=== PATIENT | female | born 1985 | race Two or more races ===

== ENCOUNTER 2025-06-18 21:35 | Emergency (ER) | payer MEDICAID, SELFPAY ==
[2025-06-18 21:42] VITALS: BP 121/68; PULSE 50; RESP 16; TEMP 36.3; O2SAT 94
[2025-06-18 21:44] VITALS: PULSE 47; RESP 20; O2SAT 99
--- NOTE | 2025-06-18 21:44 | PD.EDSYNC ---
ED Syncope RME/HPI General Chief Complaint: Syncope / Near Syncope Stated Complaint: SYNCOPE Time Seen by Provider: 06/18/25 21:48 Arrival date/time: 06/18/25 21:35 RME / HPI RME / HPI narrative: This section includes all my notes and documentations, including HPI, PE, and ED course. Damon Mcgregor MD HPI: 39yo female BIBA from home here for syncope. Patient had a witnessed syncope episode by her . Patient's caught the patient before she fell and guided her to the ground. She has been feeling generally weak for the last 1 week. Decreased oral intake due to decreased appetite. No other complaints reported. ROS: All negative except as documented in HPI. Physical Exam: General: Alert and oriented. Appearance of malaise noted. Eyes: Conjunctivae and lids clear. PERRL. EOMI. ENT: No nasal congestion. Neck: Supple. No carotid bruit. No JVD. Heart: RRR. Lungs: No respiratory distress. Good air movement. No rhonchi, wheezing, rales. Abdomen: Soft and nontender. Normal bowel sounds. No distension. No rebound or guarding. Back: No CVA tenderness. Skin: Warm and dry. Neuro: Alert and oriented X 3. Cranial nerves II to XII grossly normal. No peripheral motor deficits. I reviewed EMS notes. I reviewed all diagnostic test results. My interpretation of the EKG is sinus rhythm with no ST-T changes. My interpretation of the chest x-ray is right AC joint separation. My review of the CT head report is NAD. My review of the CT chest abdomen pelvis report is right AC joint separation with tiny fracture fragment off the distal clavicle. Blood tests and urine tests are unremarkable. COVID/Influenza negative. At this point, diagnoses include Syncope, Decreased appetite, Separation of right acromioclavicular joint, and Fracture of right clavicle. Treatment here included NS, Morphine, Zofran, Solumedrol, and Toradol. Right arm sling applied. Significant improvement noted. Recommended outpatient management. Based on my best medical judgment, made decision no further evaluation or treatment indicated at this time. Patient understands and agrees to the discharge instructions customized and printed, see below. Discharge Instructions from Dr. Mcgregor printed for you: 1. After extensive evaluation, there is no life-threatening condition. Such as stroke or brain tumor or heart attack. 2. Most likely, you passed out from not eating with decreased appetite for one week. Eat regular nutritious meals. For good hydration, increase oral fluid and maintain clear urine. If dark or yellow, increase oral fluid. Zofran for nausea/vomiting. 3. You sustained a small fracture of your right clavicle near the shoulder. And you sustained joint separation in the right shoulder. Wear right arm sling until cleared by a doctor taking care of you. Apply ice for 20 minutes every 2-3 hours today and tomorrow. Ibuprofen 600 mg every 6-8 hours today and tomorrow to decrease inflammation then as needed. Tylenol with codeine for severe pain. 4. See a private doctor outside the ER on 06/20/2025 for recheck and further care. Ask to review all test results and official radiology reports, to make sure you receive all necessary follow-ups and monitoring. Ask for help finding the cause/treatment of all your conditions, including decreased appetite and passing out. Ask for help with your right clavicle fracture and right shoulder joint separation, until you are completely better. You may need referrals to see specialists. 5. Seek immediate medical care with worsening or with any concerns. Damon Mcgregor MD Related Data Previous Rx's ?Medication ?Instructions ?Recorded acetaminophen 300 mg-codeine 30 mg 2 tab PO Q8H PRN pain #20 tabs 06/18/25 tablet ibuprofen 600 mg tablet 600 mg PO TID PRN fever or pain 06/18/25 #30 tabs ondansetron 4 mg disintegrating 4 mg PO TID PRN nausea and 06/18/25 tablet vomiting 30 days #10 tabs Allergies Allergy/AdvReac Type Severity Reaction Status Date / Time aspirin Allergy Verified 06/18/25 22:18 Review of Systems Review of Systems Systems Reviewed: All systems reviewed, normal except as documented ED Exam Narrative Physical exam: As noted in HPI. Course Quality Measures none Orders Category Date Time Status Bedside COVID-19 Antigen Test NOW Care 06/18/25 21:46 Completed Bedside Influenza A&B Antigen Test NOW Care 06/18/25 21:46 Completed EKG (ED ONLY) *Do not use* NOW Care 06/18/25 21:47 Completed Saline [Insert IV] NOW Care 06/18/25 21:46 Completed Straight [In and Out Catheter] X1 Care 06/18/25 21:46 Completed sling [Splint / Immobilizer] STAT Care 06/18/25 23:[address] chest abdomen pelvis wo Stat Exams 06/18/25 21:[address] head/brain wo con Stat Exams 06/18/25 21:47 Completed EKG (ED Only) Stat Exams 06/18/25 21:47 Ordered XR chest 1V portable Stat Exams 06/18/25 21:47 Completed Alcohol, Blood Medical Stat Lab 06/18/25 21:57 Completed Amylase Stat Lab 06/18/25 21:57 Completed BNP [B-Type Natriuretic Peptide] Stat Lab 06/18/25 21:57 Completed Beta Hydroxybutyrate Stat Lab 06/18/25 21:57 Completed Bilirubin,Direct Stat Lab 06/18/25 21:57 Completed Blood Culture (Lab) Stat Lab 06/18/25 21:57 Results CBC Stat Lab 06/18/25 21:57 Completed CMP [Comprehensive Metabolic Panel] Stat Lab 06/18/25 21:57 Completed CRP [C-Reactive Protein] Stat Lab 06/18/25 21:57 Completed Drug Screen,Urine Stat Lab 06/18/25 22:35 Completed ESR [Sed Rate (ESR)] Stat Lab 06/18/25 21:57 Completed Free T4 (Free Thyroxine) Stat Lab 06/18/25 21:57 Completed HCG Qualitative,Urine Stat Lab 06/18/25 22:35 Completed HCG,Qualitative Serum Stat Lab 06/18/25 21:57 Completed Lactate (Lactic Acid) Stat Lab 06/18/25 21:57 Completed Lipase Stat Lab 06/18/25 21:57 Completed Magnesium Stat Lab 06/18/25 21:57 Completed PT [Prothrombin Time with INR] Stat Lab 06/18/25 21:57 Completed PTT [Partial Thromboplastin Time] Stat Lab 06/18/25 21:57 Completed Procalcitonin Stat Lab 06/18/25 21:57 Completed TSH [Thyroid Stimulating Hormone] Stat Lab 06/18/25 21:57 Completed Troponin I Stat Lab 06/18/25 21:57 Completed UA, C/S IF [Urinalysis, C/S if Indicated] Stat Lab 06/18/25 22:35 Completed Acetaminophen Tab [Tylenol Tab] Med 06/19/25 00:16 Discontinued 650 mg PO X1 ONE Ketorolac Inj [Toradol Inj] Med 06/18/25 21:46 Discontinued 30 mg IVP X1 ONE MethylPREDNISolone.* [SoluMEDROL Inj] Med 06/18/25 21:46 Discontinued 125 mg IVP X1 ONE Morphine Inj Med 06/18/25 23:39 Discontinued 4 mg IVP X1 ONE Ondansetron Inj [Zofran Inj] Med 06/18/25 21:46 Discontinued 4 mg IVP X1 ONE Sodium Chloride 0.9% 1000 ml [Ns] 1,000 ml Med 06/18/25 21:46 Discontinued IV 999 mls/hr Vital Signs Vital signs: Vital Signs Temperature 97.4 F 06/18/25 21:42 Pulse Rate 50 L 06/18/25 21:42 Respiratory Rate 16 06/18/25 21:42 Blood Pressure 121/68 06/18/25 21:42 Pulse Oximetry (%) 94 L 06/18/25 21:42 Oxygen Delivery Method Room Air 06/18/25 21:42 Syncope MDM Narrative MDM Narrative:: 39yo female BIBA from home here for syncope. Patient had a witnessed syncope episode by her . Patient's caught the patient before she fell and guided her to the ground. She has been feeling generally weak for the last 1 week. Decreased oral intake due to decreased appetite. No other complaints reported. Patient data External records reviewed:: [facility] previous records (Per chart review, patient has no relevant previous ED visits or admissions to this facility.) and EMS form Clinical information provided by:: patient Social determinants that could affect healthcare access:: none Patient has the following chronic illnesses:: asthma How is presenting disease/condition affected by chronic disease/condition?: uneffected by Evaluation data The following diagnostics were reviewed and interpreted by me:: lab results, radiology exam(s) and EKG tracing(s) (My interpretation of the EKG: Sinus bradycardia (53 bpm) with no ST-T changes. Damon Mcgregor MD) Lab and/or radiology exams considered but not ordered:: none Interpretation Summary: I reviewed all diagnostic test results. My interpretation of the EKG is sinus bradycardia with no ST-T changes. My interpretation of the chest x-ray is right AC joint separation. My review of the CT head report is NAD. My review of the CT chest abdomen pelvis report is right AC joint separation with tiny fracture fragment off the distal clavicle. Blood tests and urine tests are unremarkable. COVID/Influenza negative. Medications / Prescriptions Medications or Prescriptions considered but not ordered:: none Medication administrations:: Medication Administration History Discontinued Medications Acetaminophen (Acetaminophen 325 Mg Tablet) 650 mg PO X1 ONE Stop: 06/19/25 00:17 Last Admin: 06/19/25 00:22 Dose: 650 mg Documented By: DT Sodium Chloride (Ns) 1,000 mls @ 999 mls/hr IV .Q1H1M ONE Stop: 06/18/25 22:46 Last Infusion: 06/19/25 00:00 Dose: Infused Documented By: Admin: 06/18/25 22:57 Dose: 999 mls/hr Documented By: CCT Ketorolac Tromethamine (Ketorolac Inj 30 Mg/Ml Vial) 30 mg IVP X1 ONE Stop: 06/18/25 21:47 Last Admin: 06/19/25 01:02 Dose: Not Given Documented By: CCT Non-Admin Reason: Patient Refused Methylprednisolone Sodium Succinate (Methylprednisolone Sod Succ 62.5 Mg/Ml 2ml Vial) 125 mg IVP X1 ONE Stop: 06/18/25 21:47 Last Admin: 06/18/25 22:55 Dose: 125 mg Documented By: CCT Morphine Sulfate (Morphine Sulf Inj 10 Mg/Ml Vial) 4 mg IVP X1 ONE Stop: 06/18/25 23:40 Last Admin: 06/19/25 00:17 Dose: Not Given Documented By: DT Non-Admin Reason: Patient Refused Ondansetron HCl (Ondansetron Inj 2 Mg/Ml Inj 2 Ml) 4 mg IVP X1 ONE; Protocol Stop: 06/18/25 21:47 Last Admin: 06/18/25 22:56 Dose: 4 mg Documented By: CCT NS, Morphine, Zofran, Solumedrol, Toradol, right arm sling. Consultations Consultation(s) initiated? (list below): No Diagnosis Syncope Differential Diagnosis: syncope due to orthostatic hypotension, vasovagal syncope, complete atrioventricular block, subarachnoid hemorrhage, pulmonary embolism and dehydration Most likely diagnosis given after review of the tests above:: Syncope, Decreased appetite, Separation of right acromioclavicular joint, Fracture of right clavicle Admission Indicated Admission indicated?: not indicated Explain why admission is indicated or not indicated:: With significant improvement and no condition needing emergent intervention, there was no indication for admission. Admission Request Was there a request for admission?: No Disposition Plan Disposition Plan: Discharge Discharge Attestation Discharge Attestation: The patient and all family members were given an opportunity to ask questions and understood the discharge instructions. Discharge instructions specifically effects, indications for sooner follow up or return to the emergency department, and the expected course of current diagnosis. Patient condition: Stable Discharge Plan Plan Patient Disposition: HOME (Self Care) Prescriptions/Referrals Prescriptions/Med Rec: New acetaminophen-codeine 300-30 mg tablet 2 tab PO Q8H MDD 6 PRN (Reason: pain) Qty: 20 0RF ibuprofen 600 mg tablet 600 mg PO TID PRN (Reason: fever or pain) Qty: 30 0RF ondansetron 4 mg tablet,disintegrating 4 mg PO TID PRN (Reason: nausea and vomiting) 30 Days Qty: 10 0RF Referrals: No Primary/Family,Physician [Primary Care Provider] - In 1 week Problem List Clinical Impression: Syncope, Decreased appetite, Separation of right acromioclavicular joint, Fracture of right clavicle Patient/Caregiver Discharge Instructions Discharge Activity: activity as tolerated Education Materials: ED AC Joint Sprain (Adult), ED Fracture, Clavicle, ED Fainting, Uncertain Cause Additional Instructions: Discharge Instructions from Dr. Mcgregor printed for you: 1. After extensive evaluation, there is no life-threatening condition. Such as stroke or brain tumor or heart attack. 2. Most likely, you passed out from not eating with decreased appetite for one week. Eat regular nutritious meals. For good hydration, increase oral fluid and maintain clear urine. If dark or yellow, increase oral fluid. Zofran for nausea/vomiting. 3. You sustained a small fracture of your right clavicle near the shoulder. And you sustained joint separation in the right shoulder. Wear right arm sling until cleared by a doctor taking care of you. Apply ice for 20 minutes every 2-3 hours today and tomorrow. Ibuprofen 600 mg every 6-8 hours today and tomorrow to decrease inflammation then as needed. Tylenol with codeine for severe pain. 4. See a private doctor outside the ER on 06/20/2025 for recheck and further care. Ask to review all test results and official radiology reports, to make sure you receive all necessary follow-ups and monitoring. Ask for help finding the cause/treatment of all your conditions, including decreased appetite and passing out. Ask for help with your right clavicle fracture and right shoulder joint separation, until you are completely better. You may need referrals to see specialists. 5. Seek immediate medical care with worsening or with any concerns. Instrucciones de dion del Dr. Mcgregor, impresas para usted: 1. Tras andreina evaluaci?n exhaustiva, no se observa ninguna afecci?n que ponga en peligro hudson joe. [place] un derrame cerebral, un tumor cerebral o un ataque card?aco. 2. Lo m?s probable es que se haya desmayado por no comer y con disminuci?n del apetito mariana andreina semana. Consuma comidas nutritivas con regularidad. Para andreina buena hidrataci?n, aumente la ingesta de l?quidos y mantenga la orina jeremy. Si la orina es oscura o amarilla, aumente la ingesta de l?quidos. Zofran para las n?useas y los v?mitos. 3. Sufri? andreina delifno?a fractura de clav?cula derecha cerca del hombro. Tambi?n sufri? andreina separaci?n articular en el hombro derecho. Use un cabestrillo en el brazo derecho hasta que el m?dico que lo atienda le d? el dion. Aplique hielo mariana 20 minutos cada 2-3 horas hoy y ma?aureliano. Ibuprofeno 600 mg cada 6-8 horas hoy y ma?aureliano para reducir la inflamaci?n y luego, seg?n sea necesario. Tylenol con code?na para el dolor intenso. 4. Consulte con un m?dico privado fuera de urgencias el 03/23/2025 para andreina revisi?n y atenci?n adicional. Solicite revisar todos los resultados de las pruebas y los informes radiol?gicos oficiales para asegurarse de recibir todos los seguimientos y la monitorizaci?n necesarios. Solicite ayuda para encontrar la causa y el tratamiento de todas jo afecciones, incluyendo la disminuci?n del apetito y los desmayos. Solicite ayuda con hudson fractura de clav?cula derecha y la separaci?n de la articulaci?n del hombro derecho hasta que se recupere por completo. Es posible que necesite derivaciones a especialistas. 5. Busque atenci?n m?dica inmediata si hudson condici?n empeora o tiene alguna inquietud. Print Language: Bhutanese Stand Alone Forms: Leighann Award Info., Patient Portal Info Letter
--- NOTE | 2025-06-18 21:47 | XR_ITS ---
Examination: CT chest, without intravenous contrast. CT abdomen, without intravenous contrast. CT pelvis, without intravenous contrast. 2-D sagittal and coronal reconstructions. 3-D reconstructions. Date and time of exam:June 18, 2025 1034 hours INDICATIONS: Patient fell today with into the chest and abdomen, chest pain and abdomen pain CTDI vol (mgy) 13.5 DLP (MGycm)1047 Technique: Multiple CT images, 3.0 mm slice thickness, obtained chest, abdomen, pelvis, with the high-resolution 64 slice scanner.. Sagittal and coronal 2-D reconstructions are obtained. 3-D reconstructions Low dose protocols were performed. One or more of the following dose reduction techniques were used; automated exposure control, adjustment of the mA and/or KV according to patient size, use of iterative reconstruction technique. Findings: Right AC joint separation with tiny fracture fragment off the distal clavicle axial image 60 thoracic aorta pulmonary arteries intact No hemopericardium No pneumothorax pulmonary contusion or hemothorax The manubrium at the body of the sternum are intact No thoracic or lumbar vertebral body compression fracture Ribs appear intact No liver or splenic or renal laceration, no perinephric hematoma Abdominal aorta is intact, no free blood in the abdomen or pelvis Negative for pneumoperitoneum Urinary bladder intact Hips bones of the pelvis intact IMPRESSION: Right AC joint separation with tiny fracture fragment off the distal clavicle Thoracic aorta pulmonary arteries intact No pneumothorax pulmonary contusion or hemothorax No abdominal parenchymal laceration Abdominal aorta intact No free blood in the abdomen or pelvis
--- NOTE | 2025-06-18 21:47 | XR_ITS ---
Examination: AP chest single view Technique one AP portable semiupright chest single view Date and time: June 18, 2025 10:13 PM INDICATIONS: Weakness shortness of breath dizziness chest pain today FINDINGS: Normal heart size No pneumonia or pulmonary edema Right AC joint separation The trachea is deviated to the left which may relate to rotation, clinical correlation advised IMPRESSION: No pneumonia or pulmonary edema Right AC joint separation
--- NOTE | 2025-06-18 21:47 | XR_ITS ---
Examination: CT brain head without contrast. 2-D sagittal coronal reconstructions Date and time of exam:June 18 at 10:33 PM INDICATIONS: Syncopal episode, patient fell with injury to head, head pain CTDI: vol (mGy):50.30 DLP: (mGycm):955 Technique: Multiple CT axial sections of the brain have been obtained, 5 mm slice thickness. Contrast has not been administered. 2-D sagittal, coronal reconstructions have been obtained Low dose protocols were performed. One or more of the following dose reduction techniques were used; automated exposure control, adjustment of the mA and/or KV according to patient size, use of iterative reconstruction technique. Findings: No significant ventricular enlargement. Intra-axial or extra-axial hemorrhage density is not seen. No mass effect or midline shift Basal cisterns are not remarkable. Fourth ventricle is midline. Cranial vault intact. Impression: Negative for acute hemorrhage, mass effect or midline shift
[2025-06-18 21:49] VITALS: BMI 29.0
[2025-06-18 22:09] LABS: Lactate (Lactic Acid) 1.3 mMol/L (0.4-2.0)
[2025-06-18 22:12] LABS: Basophils # (Auto) 0.0 Thou/mm3 (0.0-0.2); Basophils % (Auto) 1 % (0-2.5); Eosinophils # (Auto) 0.1 Thou/mm3 (0.0-0.5); Eosinophils % (Auto) 2 % (0-10); Hematocrit 31.5 % (36.0-46.0); Hemoglobin 9.8 g/dL (12.0-16.0); Immature Granulocytes Auto 0.02 Thou/mm3 (0.00-0.00); Lymphocytes # (Auto) 2.5 Thou/mm3 (1.0-4.8); Lymphocytes % (Auto) 32 % (10-50); Mean Corpuscular HGB Conc 31.1 g/dl (31.0-37.0); Mean Corpuscular Hemoglobin 27.0 pg (25.0-35.0); Mean Corpuscular Volume 87 fL (80-100); Monocytes # (Auto) 0.9 Thou/mm3 (0.0-0.8); Monocytes % (Auto) 12 % (0-12); Neutrophils # (Auto) 4.2 Thou/mm3 (1.8-7.7); Neutrophils % (Auto) 54 % (37-80); Nucleated Red Blood Cell # 0.00 Thou/mm3 (0.00-0.00); Nucleated Red Blood Cell % 0 /100 WBC (0); Platelet Count 255 Thou/mm3 (140-440); RDW Standard Deviation 57.4 fL (36.4-46.3); Red Blood Count 3.63 Miln/mm3 (4.00-5.20); White Blood Count 7.8 Thou/mm3 (3.6-11.0)
[2025-06-18 22:13] LABS: Beta Hydroxybutyrate 0.1 mmol/L (<0.6)
[2025-06-18 22:29] LABS: HCG,Qualitative Serum Negative
[2025-06-18 22:30] LABS: INR 1.0 (0.9-1.3); Partial Thromboplastin Time 21.6 Seconds (22.0-36.0); Prothrombin Time 11.2 Seconds (9.0-12.2)
[2025-06-18 22:39] LABS: Sed Rate (ESR) 6 mm/hr (0-20)
[2025-06-18 22:40] LABS: B-Type Natriuretic Peptide 33 pg/mL (0-100)
[2025-06-18 22:47] LABS: Alanine Aminotransferase 11 U/L (10-49); Albumin, Serum 3.9 gm/dL (3.5-5.0); Albumin/Globulin Ratio 2.1 (1.2-2.2); Alcohol, Blood Medical < 3.0 mg/dL (0-10.0); Alkaline Phosphatase 58 U/L (46-116); Amylase 60 U/L (30-118); Anion Gap 8 (7-16); Aspartate Amino Transferase 18 U/L (0-34); BUN/Creatinine Ratio 18 Ratio (12-20); Bilirubin,Direct < 0.1 mg/dL (0.0-0.3); Bilirubin,Total 0.2 mg/dL (0.3-1.2); Blood Urea Nitrogen 11 mg/dL (9-23); C-Reactive Protein < 0.5 mg/dL (0.0-0.9); Calcium 8.6 mg/dL (8.3-10.6); Calcium (Corrected) 8.7 mg/dL (8.5-10.1); Carbon Dioxide 25.5 mMol/L (20.0-31.0); Chloride 106 mMol/L (98-107); Creatinine (Component) 0.6 mg/dL (0.6-1.3); Estimated Creatinine Clearance 120.4 mL/min (>60); Free T4 (Free Thyroxine) 1.01 ng/dL (0.89-1.76); Globulin 1.9 gm/dL (2.3-3.5); Glucose 97 mg/dL (74-106); Lipase 33 U/L (12-53); Magnesium 1.8 mg/dL (1.6-2.6); Osmolality,Calculated 276 (275-295); Potassium 3.6 mMol/L (3.4-5.1); Procalcitonin < 0.04 ng/ml (0.0-0.49); Sodium 139 mMol/L (136-145); Thyroid Stimulating Hormone 2.93 uIU/mL (0.55-4.78); Total Protein 5.8 gm/dL (5.7-8.2); Troponin I < 0.020 ng/mL (0.0-0.045); eGFR > 60 See Note
[2025-06-18] MEDS: MethylPREDNISolone SOD SUCC 62.5 MG/ML 2ML VIAL 125 MG IVP (22:55)
[2025-06-18] MEDS: ONDANSETRON INJ 2 MG/ML INJ 2 ML 4 MG IVP (22:56)
[2025-06-18] MEDS: SODIUM CHLORIDE 0.9% 1000 ML 1,000 ML 999 ML IV (22:57)
[2025-06-18 23:01] LABS: Collection Type, Urine Clean Catch
[2025-06-18 23:12] LABS: HCG Qualitative,Urine Negative
[2025-06-18 23:15] LABS: Amorphous Crystals,Urine Present (Absent); Amphetamine/Methamp Scrn,U Negative (Negative); Bacteria,Urine Rare; Barbiturate Screen,Urine Negative (Negative); Benzodiazepines Screen,Urine Negative (Negative); Benzoylecgonine Screen, Ur Negative (Negative); Bilirubin,Urine Negative (Negative); Blood,Urine Negative (Negative); Clarity,Urine Clear (Clear/Hazy); Color,Urine Lt-Yellow (Lt Yel-Yel); Culture Indicated,Urine Not Indicated; Fentanyl Screen,Urine Negative (Negative); Glucose, Urine Negative (Negative); Ketones,Urine Negative (Negative); Leukocyte Esterase,Urine Negative (Negative); Nitrite,Urine Negative (Negative); Opiate Screen,Urine Negative (Negative); PH,Urine 8.0 (5.0-7.0); Protein,Urine Trace (Neg - Trace); RBC,Urine 4 /hpf (0-3); Specific Gravity,Urine 1.015 (1.001-1.035); Squamous Epithelial Cell,Urine 4 /hpf (0-5); THC Screen,Urine Negative (Negative); Urobilinogen,Urine Negative mg/dL (0.0-1.0); WBC,Urine 2 /hpf (0-5)
[2025-06-18 23:56] VITALS: BP 126/59; PULSE 62; RESP 16; O2SAT 100
[2025-06-19 00:22] VITALS: TEMP 37
[2025-06-19] MEDS: ACETAMINOPHEN 325 MG TABLET 650 MG PO (00:22)
[2025-06-19 00:32] VITALS: PULSE 65; RESP 14; TEMP 37; O2SAT 99
== END 2025-06-19 00:32 | disposition home or self-care (01) ==
PROVIDERS: Emergency Provider Emergency Medicine
DX: R55 Syncope and collapse (principal); S42.031A Displaced fracture of lateral end of right clavicle, initial encounter for closed fracture; S43.101A Unspecified dislocation of right acromioclavicular joint, initial encounter; W19.XXXA Unspecified fall, initial encounter; R00.1 Bradycardia, unspecified
CPT/HCPCS: 36415; 70450; 71045; 71250; 74176; 80053; 80307; 80320; 81001; 81025; 82010; 82150; 82248; 83605; 83690; 83735; 83880; 84145; 84439; 84443; 84484; 84703; 85025; 85610; 85652; 85730; 86140; 87040; 87400; 87811; 93005; 96361; 96374; 96375; 99284; J2405; J2919; J7030; A9270; G0480